=== PATIENT | female | born 1970 | race Caucasian/White ===

== ENCOUNTER → 2018-02-21 13:04 | Outpatient (CLI) | payer MEDICAID | END | disposition home or self-care (01) | LOC: D.RAD 11:45 → EDSEX 13:04 | DX: R06.02 Shortness of breath (principal) ==

== ENCOUNTER → 2018-02-25 10:28 | Outpatient (CLI) | payer MEDICAID | END | disposition home or self-care (01) | LOC: D.RT 10:28 | DX: R06.02 Shortness of breath (principal); Z12.31 Encounter for screening mammogram for malignant neoplasm of breast ==